=== PATIENT | female | born 1940 | race Caucasian/White ===

== ENCOUNTER 2022-06-19 08:12 | Outpatient (CLI) | payer MEDICARE, OTHER | END 2022-06-19 08:13 | disposition home or self-care (01) | LOC: CSHWCC 08:12 | PROVIDERS: ATTEND Preventive Medicine Undersea and Hyperbaric Medicine | DX: S51.802D Unspecified open wound of left forearm, subsequent encounter (principal) | CPT/HCPCS: 97139; G0463; 99213 ==

== ENCOUNTER 2022-08-07 14:23 | Outpatient (CLI) | payer OTHER, MEDICARE | END 2022-08-07 14:24 | disposition home or self-care (01) | LOC: CSHWCC 14:23 | PROVIDERS: ATTEND Nurse Practitioner Family | DX: S51.802D Unspecified open wound of left forearm, subsequent encounter (principal); S51.812D Laceration without foreign body of left forearm, subsequent encounter | CPT/HCPCS: 99213; G0463 ==

== ENCOUNTER 2022-08-28 14:04 | Outpatient (CLI) | payer OTHER, MEDICARE | END 2022-08-28 14:05 | disposition home or self-care (01) | LOC: CSHWCC 14:04 | PROVIDERS: ATTEND Nurse Practitioner Family | DX: L97.829 Non-pressure chronic ulcer of other part of left lower leg with unspecified severity (principal) | CPT/HCPCS: 99212; G0463 ==